=== PATIENT | female | born 1985 | race African-American/Black ===

== ENCOUNTER 2018-01-01 15:45 | Emergency (ER) | payer OTHER ==
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
[2018-01-01] MEDS ORDERED: ONDANSETRON 4 MG/2 ML VIAL ONE (16:58)
[2018-01-01] MEDS ORDERED: MORPHINE 4 MG/ML SYR ONE (16:58)
[2018-01-01 17:02] LABS: Urine Blood NEGATIVE (NEG); Urine Glucose NEGATIVE (NEG); Urine Protein TRACE (NEG); Urine pH 6.5 (5.0-7.0)
[2018-01-01 17:10] LABS: Absolute Lymphocytes (CBC) 2.5 K/uL (0.7-4.9); Absolute Monocytes 0.4 K/uL (0.1-1.3); Absolute Neutrophil 3.3 K/uL (1.8-8.0); Basophils % 0.3 % (0-1.3); Eosinophils % 2.3 % (0-4.4); Hematocrit 38.8 % (36.0-45.0); Lymphocytes % 39.7 % (15.3-44.8); MCH 29.2 pg (27.0-35.0); MCV 87.9 fL (80-100); MPV 10.4 fL (7.6-11.3); Monocytes % 6.1 % (3.3-12.3); RBC Red Blood Cell Count 4.42 M/uL (3.86-4.86)
[2018-01-01 17:25] LABS: Albumin 4.1 g/dL (3.4-5.0); Bilirubin Total 0.3 mg/dL (0.2-1.0); Potassium 4.4 mmol/L (3.5-5.1); Protein, Total 8.5 g/dL (6.4-8.2)
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
[2018-01-01] MEDS ORDERED: HYDROCODONE/APAP 10/325 TAB ONE (18:52)
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
== END 2018-01-01 19:48 | disposition home or self-care (01) ==
LOC: ER 15:45 → EDBD 15:45 → ER 19:48
DX: M48.46XA Fatigue fracture of vertebra, lumbar region, initial encounter for fracture (principal); V79.50XA Passenger on bus injured in collision with unspecified motor vehicles in traffic accident, initial encounter
CPT/HCPCS: 36415; 70450; 71260; 72125; 74176; 74177; 80053; 81003; 81025; 85025; 96374; 96375; 99285; J2405; Q9967